=== PATIENT | male | born 1990 | race Caucasian/White ===

== ENCOUNTER 2018-05-17 14:59 | Emergency (ER) | payer MEDICAID ==
[~2018-05-17] VITALS: Ht 185.4 cm; Wt 70.3 kg
[2018-05-17 15:12] VITALS: BP 82/30
--- NOTE | 2018-05-17 15:17 | NUR ---
PT AMBULATED TO LOBBY WITH HOUSE MOVER, ZAIDS
--- NOTE | 2018-05-17 15:41 | NUR ---
ambulated with caretakers to room 2
--- NOTE | 2018-05-17 15:42 | NUR ---
PT BIB [facility], WAS AT DAY CARE PROGRAM AND NOTICED PATIENT HAD BLOOD COMING FROM RIGHT PINKY TOE. TOE APPEARS TO HAVE SOME TRAUMA NEAR THE NAIL. PT IS NON VERBAL. HX: SCOLIOSIS, MENTAL RETARDARTION. PT NEUROLOGICALLY BASE LINE. PATIENT POSITIONED FOR COMFORT; HOB ELEVATED; BEDRAILS UP X2; BED DOWN. ER MD MADE AWARE OF PT STATUS.
== END 2018-05-17 17:21 | disposition home or self-care (01) ==
LOC: MED 14:59
DX: S90.121A Contusion of right lesser toe(s) without damage to nail, initial encounter (principal); S90.414A Abrasion, right lesser toe(s), initial encounter; F79 Unspecified intellectual disabilities; X58.XXXA Exposure to other specified factors, initial encounter; Y93.89 Activity, other specified; Y92.89 Other specified places as the place of occurrence of the external cause; Y99.8 Other external cause status
CPT/HCPCS: 73660; 99283; Q0092